=== PATIENT | female | born 1955 | race Caucasian/White ===

== ENCOUNTER 2024-07-17 01:19 | Emergency (ER) | payer MEDICARE, MEDICAID ==
[~2024-07-17] VITALS: Ht 157.5 cm; Wt 64.0 kg
[2024-07-17 01:27] VITALS: O2SAT 100
[2024-07-17 02:37] LABS: BASOPHILS % 0.9 % (0.0-2.0); HEMATOCRIT. 33.6 % (36.0-48.0); HEMOGLOBIN. 11.1 g/dL (12.0-16.0); LYMPHOCYTES % 23.7 % (20.0-50.0); MEAN CORPUSCULAR HEMOGLOBIN 30.7 pg (28.0-32.0); MEAN CORPUSCULAR HGB CONC 32.9 g/dL (31.0-37.0); MEAN CORPUSCULAR VOLUME 93.3 fL (81.0-99.0); MONOCYTES % 7.4 % (2.0-8.0); PLATELET 189 x1000/uL (130-400); RED BLOOD CELL COUNT 3.61 mill/uL (4.2-5.4); RED CELL DISTRIBUTION WIDTH 14.9 % (11.6-14.6); WHITE BLOOD COUNT 6.2 x1000/uL (4.5-11.0)
[2024-07-17 03:31] LABS: POTASSIUM 4.7 mEq/L (3.5-5.1)
[2024-07-17 03:32] LABS: CALCIUM 8.2 mg/dL (8.7-10.4)
[2024-07-17 03:37] LABS: CREATININE 3.3 mg/dL (0.6-1.0)
[2024-07-17] MEDS: MORPHINE SULFATE 4 MG/ML INJ (FOR IV/IM USE) IV STA (04:22)
[2024-07-17] MEDS: ONDANSETRON HCL 4MG/2ML INJ IV STA (04:22)
[2024-07-17 06:27] VITALS: BP 156/47; PULSE 54; RESP 16; O2SAT 100
== END 2024-07-17 06:28 | disposition home or self-care (01) ==
LOC: ER 01:19
DX: S16.1XXA Strain of muscle, fascia and tendon at neck level, initial encounter (principal); S39.012A Strain of muscle, fascia and tendon of lower back, initial encounter; N19 Unspecified kidney failure; E11.9 Type 2 diabetes mellitus without complications; I10 Essential (primary) hypertension; Z98.890 Other specified postprocedural states; Z99.2 Dependence on renal dialysis; V89.2XXA Person injured in unspecified motor-vehicle accident, traffic, initial encounter; Y93.89 Activity, other specified; Y92.89 Other specified places as the place of occurrence of the external cause; Y99.8 Other external cause status
CPT/HCPCS: 99291; 70450; 96374; 96375; 80048; 85025; 36415; 72125; 71250; 74176; J2405; J2270